=== PATIENT | female | born 1965 | race Hispanic/Latino ===

== ENCOUNTER 2019-06-10 11:41 | Observation (INO) | payer MEDICARE ==
[2019-06-10] VITALS (26 sets, daily range): BP systolic 144–204; BP diastolic 67–95
[~2019-06-10] VITALS: Ht 142.2 cm; Wt 47.5 kg
[2019-06-10] MEDS ORDERED: MIDAZOLAM HCL 1 MG/ML 2ML VIAL ONE (12:45)
[2019-06-10] MEDS ORDERED: PROPOFOL 10 MG/ML 20ML VIAL IV ONE (12:45)
[2019-06-10] MEDS ORDERED: FENTANYL CITRATE PF 50 MCG/1 ML 2ML VIAL ONE (12:45)
[2019-06-10] MEDS ORDERED: SODIUM CHLORIDE 0.9% 1000ML 1,000 ML IV ONE (12:49)
[2019-06-10] MEDS ORDERED: CEFAZOLIN SODIUM 1 GM VIAL ONE (12:49)
[2019-06-10] MEDS ORDERED: ATOR20TA65 PO (13:05)
[2019-06-10] MEDS ORDERED: CARV12.511 PO (13:05)
[2019-06-10] MEDS ORDERED: HYDR100T27 PO (13:05)
[2019-06-10] MEDS ORDERED: NIFE60TA71 PO (13:05)
[2019-06-10] MEDS ORDERED: CALC667C10 PO (13:05)
[2019-06-10] MEDS ORDERED: DEXTROSE 50%-WATER 25 GM/50 ML VIAL ONE (13:06)
[2019-06-10] MEDS ORDERED: ONDANSETRON HCL 4 MG/2 ML VIAL ONE (13:10)
[2019-06-10] MEDS ORDERED: LIDOCAINE PF 2% 5ML ABBOJECT ONE (13:10)
[2019-06-10] MEDS ORDERED: ESTROGENS,CONJUGATED 0.625 MG/GM 42.5 GM VAG CRM VG ONE (13:18)
[2019-06-10] MEDS ORDERED: MEPERIDINE-PF 25 MG/ML SYG ONE (14:16)
--- NOTE | 2019-06-10 15:40 | NUR ---
ADMISSION FROM PACCU HAD SURGERY DONE PER DR. PHILLIPS, POSTOP CARE. AND V/S MONITORING STARTED AAO X 3 . PT CAME IN FROM SURGERY WITH A CONTINOUS IRRIGATION SETUP TO HER BLADDER, , WITH A URINE FLOW OF RETURN OF LIGHT PINKISH COLOR. PT STATED THAT SHE IS A DIALYSIS PT . AND VOIDS SOMETIME, . POSTOP V/S . STARTED ,AND CALL LIGHT IN REACH..
[2019-06-10] MEDS ORDERED: HYDRALAZINE HCL 20 MG/ML VIAL IV PRN (16:00)
[2019-06-10] MEDS ORDERED: ACETAMINOPHEN 325 MG TAB PO PRN (16:00)
[2019-06-10] MEDS ORDERED: ONDANSETRON HCL 4 MG/2 ML VIAL IVP PRN (16:00)
[2019-06-10 16:21] LABS: HEMATOCRIT 33.7 % (36-48); MEAN CORPUSCULAR HEMOGLOBIN 31.5 pg (27.0-33.0); MEAN CORPUSCULAR HGB CONC 33.2 g/dL (32.0-36.0); MEAN CORPUSCULAR VOLUME 94.9 fL (79-99); PLATELET COUNT (AUTO) 86 K/uL (130-400); RED BLOOD CELL COUNT(AUTO) 3.55 MIL/uL (4.00-5.50); RED CELL DISTRIBUTION WIDTH 14.2 % (11.0-15.5); WHITE BLOOD COUNT (AUTO) 15.8 K/uL (4.8-10.8)
[2019-06-10 16:38] LABS: ALBUMIN 2.9 g/dL (3.5-5.0); BILIRUBIN,TOTAL 0.7 mg/dL (0.2-1.0); CREATININE 3.4 mg/dL (0.5-1.5); POTASSIUM 5.1 mmol/L (3.5-5.1); TOTAL PROTEIN, SERUM 6.3 g/dL (6.0-8.3)
[2019-06-10] MEDS ORDERED: SODIUM CHLORIDE 0.9% 1000ML 1,000 ML IV SCH (17:00)
[2019-06-10] MEDS ORDERED: PHARMACY COMMUNICATION MISC SCH (17:15)
[2019-06-10] MEDS ORDERED: ACETAMINOPHEN-CODEINE 300/30MG TAB PO PRN (17:15)
--- NOTE | 2019-06-10 19:30 | NUR ---
CALL DR TESHA LESTER WAS CONSULTED FOR NEW PATIENT FROM [facility] THAT HAS DIALYSIS ON TUE,THUR,AND SAT. I ATTEMPTED TO CALL HIS ANSWERING SERVICE AND DID NOT GET A RESPONSE.
--- NOTE | 2019-06-10 19:40 | NUR ---
MD CALL DR Hiral MCCULLOUGH MD PAGED TO HIS PAGER FOR A NEW CONSULT NO RETURN CALL BACK YET.
--- NOTE | 2019-06-10 19:55 | NUR ---
RE PAGE DR Hiral MCCULLOUGH PAGED ONCE MORE WITH NO RESPONSE.
[2019-06-10] MEDS: [UNRECOGNIZED DRUG - OTHER] TP SCH (20:45)
[2019-06-10] MEDS: CARVEDILOL 12.5 MG TABLET PO SCH (20:45)
[2019-06-10] MEDS ORDERED: ATORVASTATIN CALCIUM 20 MG TABLET PO SCH (21:00)
--- NOTE | 2019-06-10 21:20 | NUR ---
CONSULT Hiral RIOS HAS NOT RETURN HIS PAGES SO I CONTACTED THE HOSPITALIST ABOUT SITUATION. CRISTIAN ENRIQUEZP GAVE ORDER TO CONSULT DIALYSIS NURSE IN AM FOR DIALYSIS TREATMENT IN AM.
[2019-06-11 03:58] VITALS: BP 163/70
[2019-06-11 05:11] LABS: BASOPHILS % (AUTO) 0.2 % (0.0-5.0); EOSINOPHILS % (AUTO) 1.3 % (0.0-8.0); HEMATOCRIT 30.3 % (36-48); LYMPHOCYTES % (AUTO) 3.1 % (21.0-51.0); MEAN CORPUSCULAR HEMOGLOBIN 31.5 pg (27.0-33.0); MEAN CORPUSCULAR VOLUME 95.6 fL (79-99); PLATELET COUNT (AUTO) 83 K/uL (130-400); RED BLOOD CELL COUNT(AUTO) 3.17 MIL/uL (4.00-5.50); RED CELL DISTRIBUTION WIDTH 14.6 % (11.0-15.5); WHITE BLOOD COUNT (AUTO) 13.1 K/uL (4.8-10.8)
[2019-06-11] MEDS ORDERED: CEFAZOLIN SODIUM 500 MG VIAL IV SCH (05:15)
[2019-06-11 05:20] LABS: CREATININE 4.4 mg/dL (0.5-1.5); POTASSIUM 5.4 mmol/L (3.5-5.1)
--- NOTE | 2019-06-11 07:25 | NUR ---
DR PHILLIPS ROUNDED ON PATIENT ORDERS TO D/C ICS AND [facility] CATHETER MAY D/C HOME WITH FOLLOW-UP IN 2 WEEKS , DIALYSIS TODAY DR PHILLIPS HAD PHONE CONVERSATION WITH DR MCCULLOUGH FOR PATIENT TO HAVE DIALYSIS TODAY , PATIENT CONSENTED FOR DIALYSIS.
[2019-06-11 07:56] VITALS: BP 179/76
[2019-06-11] MEDS: CALCIUM ACETATE 667 MG CAPSULE PO SCH ×2 (08:07→12:32)
[2019-06-11] MEDS: CARVEDILOL 12.5 MG TABLET PO SCH (08:08)
[2019-06-11] MEDS: [UNRECOGNIZED DRUG - OTHER] TP SCH (08:08)
[2019-06-11] MEDS ORDERED: HYDRALAZINE HCL 25 MG TABLET PO SCH (09:00)
[2019-06-11] MEDS ORDERED: NIFEDIPINE ER 30 MG TAB PO SCH (09:00)
[2019-06-11] MEDS ORDERED: NITROGLYCERIN 0.4 MG SL TAB SL PRN (09:30)
[2019-06-11] MEDS ORDERED: HEPARIN SODIUM 5000UNIT/ML 1ML VIAL IJ PRN ×2 (09:30)
[2019-06-11] MEDS ORDERED: 0.9% SODIUM CHLORIDE 1000 ML IV BAG IV PRN (09:30)
[2019-06-11] MEDS ORDERED: SODIUM CHLORIDE 0.9% 1000ML 1,000 ML IV PRN (09:30)
[2019-06-11] MEDS ORDERED: LIDOCAINE HCL-MPF 1% 2ML VIAL IJ PRN (09:30)
[2019-06-11] MEDS ORDERED: ACETAMINOPHEN 325 MG TAB PO PRN (09:30)
[2019-06-11 11:14] VITALS: BP 128/57
--- NOTE | 2019-06-11 12:01 | NUR ---
PATIENT HAD DIALYSIS TODAY , 1.5 LITERS REMOVED B/P 147/61 P 76 R 18 T 96.9
--- NOTE | 2019-06-11 17:00 | NUR ---
PATIENT GIVEN DISCHARGE INSTRUCTIONS AND VERBALIZED UNDERSTANDING , REVIEWED FOLLOW-UP APPOINTMENTS AND MEDICATINS TO CONTINUE AND NEW MEDICATIONS, IV REMOVED WITH CATHETER INTACT AND SITE DRESSED NO QUESTIONS OR CNCERNS AT THIS TIME . PATIENT CALLED FOR RIDE AND WILL LET THE STAFF KNOW WHEN SHE IS READY TO BE TAKING DOWN STAIRS TO LOBBY.
[2019-06-12 06:09] LABS: HEPATITIS A ANTIBODY IGM Negative (Negative); HEPATITIS B CORE IGM Negative (Negative); HEPATITIS Bs ANTIGEN SCREEN P Negative (Negative)
== END 2019-06-11 18:04 | disposition home or self-care (01) ==
LOC: DAH 11:41 → DAHIP 11:42 → 4BH 14:48
PROVIDERS: ADMIT Urology; ATTEND Urology
DX: N30.91 Cystitis, unspecified with hematuria (principal); N32.89 Other specified disorders of bladder; I12.0 Hypertensive chronic kidney disease with stage 5 chronic kidney disease or end stage renal disease; E11.22 Type 2 diabetes mellitus with diabetic chronic kidney disease; N18.6 End stage renal disease; E78.5 Hyperlipidemia, unspecified; E87.5 Hyperkalemia; E46 Unspecified protein-calorie malnutrition; M32.9 Systemic lupus erythematosus, unspecified; D64.9 Anemia, unspecified; E78.00 Pure hypercholesterolemia, unspecified; Z99.2 Dependence on renal dialysis; Z85.51 Personal history of malignant neoplasm of bladder; Z90.710 Acquired absence of both cervix and uterus; Z79.899 Other long term (current) drug therapy
CPT/HCPCS: 36415 ×2; 52001; 52204; 80048; 80053; 80074; 82948 ×2; 85025; 85027; 88305; 96374; A4215; A4221; A4222; A4223; A4354; A4663; A5113; G0378 ×25; J0690 ×2; J2001; J2175; J2250; J2405; J2704; J3010; J7030; J7070; 90935